=== PATIENT | female | born 1955 | race Caucasian/White ===

== ENCOUNTER 2022-11-12 15:55 | Emergency (ER) | payer MEDICARE, OTHER ==
[~2022-11-12] VITALS: Ht 152.4 cm; Wt 77.1 kg
[2022-11-12 16:11] VITALS: BP 164/89
[2022-11-12] MEDS ORDERED: SULTRIDS PO (17:53)
[2022-11-12] MEDS ORDERED: CEPH500 PO (17:53)
== END 2022-11-12 18:29 | disposition home or self-care (01) ==
LOC: ER 15:55
DX: L03.116 Cellulitis of left lower limb (principal); Z88.8 Allergy status to other drugs, medicaments and biological substances; F17.210 Nicotine dependence, cigarettes, uncomplicated
CPT/HCPCS: 99282; A9270

== ENCOUNTER 2022-11-17 18:59 | Emergency (ER) | payer MEDICARE, OTHER ==
[~2022-11-17] VITALS: Ht 152.4 cm; Wt 72.6 kg
[~2022-11-17 18:59] MED LIST: CEPH500 PO; SULTRIDS PO
[2022-11-17 19:50] LABS: BASOPHILS ABSOLUTE AUTO 0.05 K/mm3 (0.00-0.23); BASOPHILS PERCENT AUTO 1 % (0-2); EOSINOPHILS ABSOLUTE AUTO 0.07 K/mm3 (0.00-0.68); EOSINOPHILS PERCENT AUTO 2 % (0-6); Hematocrit 35.6 % (33.0-51.0); Hemoglobin 11.5 g/dL (11.5-16.0); IMMATURE GRAN ABSOLUTE AUTO 0.07 K/mm3 (0.00-0.10); IMMATURE GRAN PERCENT AUTO 2 % (0-1); LYMPHOCYTES PERCENT AUTO 39 % (21-46); MONOCYTES ABSOLUTE AUTO 0.25 K/mm3 (0.16-1.47); MONOCYTES PERCENT AUTO 5 % (4-13); Mean Corpuscular HGB 28.4 pg (26.0-34.0); Mean Corpuscular HGB Conc 32.3 g/dL (31.5-36.5); Mean Corpuscular Volume 88 fL (80-100); NEUTROPHILS PERCENT AUTO 52 % (41-73); Platelet Count 275 K/mm3 (150-400); RDW Coefficient Variation 16.5 % (11.7-14.2); RDW Standard Deviation 53.2 fL (35.1-46.3); Red Blood Cell Count 4.05 M/mm3 (3.80-5.20); White Blood Cell Count 4.64 K/mm3 (4.00-11.30)
[2022-11-17 19:52] LABS: Mean Platelet Volume 13.9 fL (9.1-12.4)
[2022-11-17 19:57] LABS: Albumin, Blood 3.4 g/dL (3.4-5.0); Bilirubin, Total 0.1 mg/dL (0.1-1.0); Bun/Creatinine Ratio 18.8 (12.0-20.0); Calcium, Blood 8.8 mg/dL (8.5-10.1); Creatinine, Blood 0.8 mg/dL (0.40-1.00); Globulin, Blood 3.5 g/dL (2.2-4.0); Potassium, Blood 4.2 mmol/L (3.5-5.5); Total Protein, Blood 6.9 g/dL (6.4-8.2)
[2022-11-17 21:15] VITALS: BP 142/64
== END 2022-11-17 21:35 | disposition home or self-care (01) ==
LOC: ER 18:59
PROVIDERS: Student in an Organized Health Care Education/Training Program
DX: R60.0 Localized edema (principal); Z88.8 Allergy status to other drugs, medicaments and biological substances; Z79.899 Other long term (current) drug therapy; F17.200 Nicotine dependence, unspecified, uncomplicated
CPT/HCPCS: 80053; 83880; 85025; 96374; 99284-25; J1940

== ENCOUNTER 2022-12-25 17:17 | Emergency (ER) | payer MEDICARE, OTHER ==
[~2022-12-25] VITALS: Ht 152.4 cm; Wt 72.6 kg
[2022-12-25 17:26] VITALS: BP 134/86
== END 2022-12-25 19:26 | disposition home or self-care (01) ==
LOC: ER 17:17
DX: Z02.89 Encounter for other administrative examinations (principal); Z59.00 Homelessness unspecified
CPT/HCPCS: 99282